=== PATIENT | male | born 1965 | race Caucasian/White ===

== ENCOUNTER → 2016-09-10 | Outpatient (CLI) | payer BC ==
--- NOTE | 2016-09-10 17:10 | XR ---
EXAMINATION TYPE: XR chest 2V DATE OF EXAM: 09/10/2016 5:01 PM COMPARISON: 10/24/2014 HISTORY: Cough for 3 months TECHNIQUE: Frontal and lateral views of the chest are obtained. FINDINGS: Heart and mediastinum are normal. Lungs are clear. Costophrenic angles are clear. There ar e no hilar masses. Bony thorax is intact. IMPRESSION: Normal chest. No change.
== END | disposition home or self-care (01) ==
LOC: RADXRMAIN 16:51
PROVIDERS: ATTEND Family Medicine
DX: R05 Cough (principal)
CPT/HCPCS: 71020

== ENCOUNTER → 2018-03-03 | Outpatient (CLI) | payer BC ==
--- NOTE | 2018-03-03 22:38 | MR ---
EXAMINATION TYPE: MR knee RT wo con DATE OF EXAM: 03/03/2018 COMPARISON: NONE HISTORY: Rt knee pain x 1 month TECHNIQUE: Multiplanar, multisequence images of the knee is performed without IV contrast. FINDINGS: MEDIAL MENISCUS: Anterior and posterior horns are intact without tear. LATERAL MENISCUS: Anterior and posterior horns are intact without tear. CRUCIATE LIGAMENTS: The anterior and posterior cruciate ligaments are intact and unremarkable. COLLATERAL LIGAMENTS: The medial collateral ligament and lateral collateral ligament complex are inta ct and unremarkable. EXTENSOR MECHANISM: Visualized quadriceps and patellar tendons are intact. EFFUSION: No significant suprapatellar joint effusion. POPLITEAL CYST: No popliteal/velez cyst. TRICOMPARTMENT SPACES: There is fairly moderate tricompartment joint space loss most prominent medial tibiofemoral compartment. Mild tibial condylar spurring is present. Mild spurring patellofemoral com partment is seen. CARTILAGE: There is thinning of articular cartilage medial tibial femoral compartment. There is confi rmation patella with near full-thickness loss central aspect medial posterior patellar pole near axia l image 17. BONE MARROW SIGNAL: Some heterogeneous signal posterior patellar pole is present sagittal image 17. S ome mild diminished T1 and increased T2 signal is seen in the medial tibiofemoral compartment for ref erence sagittal image 10. OTHER: Increased fluid signal subcutaneous deep superficial infrapatellar fat is noted. IMPRESSION: 1. No meniscal or ligamentous tear is seen. 2. Moderate to advanced osteoarthritic changes most prominent patellofemoral and medial tibiofemoral compartments as detailed above.
== END | disposition home or self-care (01) ==
LOC: RADMRIMAIN 16:27
PROVIDERS: ATTEND Orthopaedic Surgery
DX: M17.11 Unilateral primary osteoarthritis, right knee (principal)

== ENCOUNTER → 2018-08-21 | Outpatient (CLI) | payer BC ==
[2018-08-21 16:23] LABS: LDL Cholesterol,Calculated 152.6 mg/dL (0.0-131.0); VLDL Calculation 34.4 mg/dL (5.00-40.00)
== END ==
LOC: LABWHC1 10:41
PROVIDERS: ATTEND Family Medicine
DX: E78.5 Hyperlipidemia, unspecified (principal); R51 Headache; R42 Dizziness and giddiness
CPT/HCPCS: 36415; 80061; 83036; 85379

== ENCOUNTER → 2018-11-03 | Outpatient (CLI) | payer BC ==
[2018-11-03 15:07] LABS: Basophils # (A) 0.1 k/uL (0-0.2); Basophils % (A) 1 %; Eosinophils # (A) 0.3 k/uL (0-0.7); Eosinophils % (A) 3 %; HCT 49.8 % (39.0-53.0); HGB 16.2 gm/dL (13.0-17.5); Lymphocytes # (A) 3.1 k/uL (1.0-4.8); Lymphocytes % (A) 28 %; MCH 30.6 pg (25.0-35.0); MCHC 32.5 g/dL (31.0-37.0); MCV 94.2 fL (80.0-100.0); Mean Platelet Volume 8.3; Monocytes # (A) 0.5 k/uL (0-1.0); Monocytes % (A) 5 %; Neutrophils # (A) 6.8 k/uL (1.3-7.7); Neutrophils % (A) 62 %; Platelet Count 313 k/uL (150-450); RBC 5.29 m/uL (4.30-5.90); RDW 12.5 % (11.5-15.5); WBC 10.9 k/uL (3.8-10.6)
== END | disposition home or self-care (01) ==
LOC: LABWHC1 14:21
PROVIDERS: ATTEND Family Medicine
DX: L03.115 Cellulitis of right lower limb (principal)
CPT/HCPCS: 36415; 85025; 85379

== ENCOUNTER 2019-07-30 20:41 | Emergency (ER) | payer BC ==
[2019-07-30 20:54] VITALS: BP 147/88; PULSE 82; RESP 18; TEMP 98
--- NOTE | 2019-07-30 21:32 | XR ---
EXAMINATION TYPE: XR tibia fibula RT DATE OF EXAM: 07/30/2019 COMPARISON: NONE HISTORY: Leg pain TECHNIQUE: 2 views FINDINGS: Tibia and fibula appear intact. I see no fracture nor dislocation. IMPRESSION: Negative right tibia and fibula exam.
--- NOTE | 2019-07-30 21:54 | US ---
EXAMINATION TYPE: US extremity nonvasc mass RT DATE OF EXAM: 07/30/2019 COMPARISON: NONE CLINICAL HISTORY: pain. Right posterior calf pain after patient heard a popping sound. The right posterior calf, over area of pain, was scanned. There is no abnormal fluid collection or ma ss seen. IMPRESSION: No solid or cystic mass identified in the area of concern. No free fluid.
--- NOTE | 2019-07-30 22:06 | ED ---
Lower Extremity Injury HPI - General Chief Complaint: Extremity Injury, Lower Stated Complaint: Leg injury Time Seen by Provider: 07/30/19 20:59 Source: patient, RN notes reviewed, old records reviewed Mode of arrival: ambulatory Limitations: no limitations - History of Present Illness Initial Comments: Patient is a 53-year-old male presents emergency department today 2 days after he was bowling. He reports he was pulling felt a pop and a strain in his right posterior calf. Patient states that he has had some pain with range of motion and minor swelling. Patient states that he has full range of motion of his ankle. Patient denies any knee pain. Patient states that he feels he pulled some muscles well bowling. Patient states that he try to build today and was having pain and felt that he needed to be seen. - Related Data Home Medications Medication Instructions Recorded Confirmed No Known Home Medications 11/01/15 11/02/15 Allergies Allergy/AdvReac Type Severity Reaction Status Date / Time No Known Allergies Allergy Verified 07/30/19 20:54 Review of Systems ROS Statement: Those systems with pertinent positive or pertinent negative responses have been documented in the HPI. ROS Other: All systems not noted in ROS Statement are negative. Past Medical History Past Medical History: GERD/Reflux History of Any Multi-Drug Resistant Organisms: None Reported Past Surgical History: Orthopedic Surgery Additional Past Surgical History / Comment(s): VASECTOMY,RIGHT HAND Past Anesthesia/Blood Transfusion Reactions: No Reported Reaction Past Psychological History: No Psychological Hx Reported Smoking Status: Never smoker Past Alcohol Use History: Occasional Past Drug Use History: None Reported - Past Family History Mother Family Medical History: No Reported History General Exam - General Exam Comments Initial Comments: Pleasant 53-year-old male. No distress. Limitations: no limitations General appearance: alert, in no apparent distress Head exam: Present: atraumatic, normocephalic, normal inspection Eye exam: Present: normal appearance, PERRL, EOMI. Absent: scleral icterus, conjunctival injection, periorbital swelling ENT exam: Present: normal exam, mucous membranes moist Neck exam: Present: normal inspection. Absent: tenderness, meningismus, lymphadenopathy Respiratory exam: Present: normal lung sounds bilaterally. Absent: respiratory distress, wheezes, rales, rhonchi, stridor Cardiovascular Exam: Present: regular rate, normal rhythm, normal heart sounds. Absent: systolic murmur, diastolic murmur, rubs, gallop, clicks GI/Abdominal exam: Present: soft Extremities exam: Present: normal inspection, full ROM, normal capillary refill. Absent: tenderness, pedal edema, joint swelling, calf tenderness Right Upper Leg exam: Present: normal inspection, full ROM Knee exam: Present: normal inspection, full ROM Lower Leg exam: Present: normal inspection, full ROM, tenderness (over posterior calf, no erythema. ) Ankle exam: Present: normal inspection, full ROM Foot/Toe exam: Present: normal inspection, full ROM Back exam: Present: normal inspection Course Vital Signs 07/30/19 20:50 Temperature 98.0 F Pulse Rate 82 Respiratory 18 Rate Blood Pressure 147/88 O2 Sat by Pulse 94 L Oximetry Medical Decision Making - Medical Decision Making Patient is a 53-year-old male presents today for right posterior leg pain after a popping sensation while bowling yesterday. He has no significant swelling or erythema. Discussed likely muscle strain. Patient has normal pulses. He has normal range of motion of his ankle. No Achilles tendon injury. Discussed likely a H Jey gastrocnemius or soleus muscle. Ultrasound soft tissue stranding completed with no sign of posterior hematomas. Patient typically x- ray was unremarkable. Discussed the Patient likely has a muscle strain and can follow-up with primary care doctor or orthopedic if not Naseem wrap. - Radiology Data Radiology results: report reviewed Tib-fib x-rays negative for for any fracture. Ultrasound of the right lower Boucher knee shows no signs of cystic or free fluid. Disposition Clinical Impression: Strain of calf muscle Disposition: HOME SELF-CARE Condition: Good Instructions (If sedation given, give patient instructions): Muscle Strain (DC) Additional Instructions: Patient advised to follow-up with your primary care doctor. Patient can ice and take Motrin or Tylenol for pain. Patient can wear an Naseem wrap as well as a help with swelling or pain. Follow-up with primary care doctor. Is patient prescribed a controlled substance at d/c from ED?: No Referrals: Jefferson Lopez DO [Primary Care Provider] - 1-2 days Time of Disposition: 22:02
== END 2019-07-30 22:19 | disposition home or self-care (01) ==
LOC: EC 20:41
DX: S86.911A Strain of unspecified muscle(s) and tendon(s) at lower leg level, right leg, initial encounter (principal); X50.9XXA Other and unspecified overexertion or strenuous movements or postures, initial encounter; Y93.54 Activity, bowling
CPT/HCPCS: 99284

== ENCOUNTER → 2019-08-23 | Outpatient (CLI) | payer BC ==
[2019-08-23 12:30] LABS: Basophils # (A) 0.1 k/uL (0-0.2); Basophils % (A) 2 %; Eosinophils # (A) 0.2 k/uL (0-0.7); Eosinophils % (A) 3 %; HCT 46.2 % (39.0-53.0); HGB 15.9 gm/dL (13.0-17.5); Lymphocytes # (A) 2.3 k/uL (1.0-4.8); Lymphocytes % (A) 31 %; MCH 32.5 pg (25.0-35.0); MCHC 34.4 g/dL (31.0-37.0); MCV 94.5 fL (80.0-100.0); Mean Platelet Volume 9.5; Monocytes # (A) 0.5 k/uL (0-1.0); Monocytes % (A) 7 %; Neutrophils # (A) 4.1 k/uL (1.3-7.7); Neutrophils % (A) 55 %; Platelet Count 307 k/uL (150-450); RBC 4.89 m/uL (4.30-5.90); RDW 12.4 % (11.5-15.5); WBC 7.4 k/uL (3.8-10.6)
[2019-08-23 14:34] LABS: Potassium 4.3 mmol/L (3.5-5.1)
== END | disposition home or self-care (01) ==
LOC: LABPAT 11:26
PROVIDERS: ATTEND Orthopaedic Surgery
DX: Z01.818 Encounter for other preprocedural examination (principal); Z01.812 Encounter for preprocedural laboratory examination; M23.91 Unspecified internal derangement of right knee
CPT/HCPCS: 80051; 85025; 93005

== ENCOUNTER 2019-09-09 11:47 | Day surgery (SDC) | payer BC ==
[2019-09-07 17:01] VITALS: BMI 39.7
--- NOTE | 2019-09-08 17:05 | HP ---
HISTORY AND PHYSICAL DATE OF SURGERY: 09/09/2019 Fabricio Soto is a 54-year-old patient seen with progressive right knee pain. We discussed options for treatment. He elected to proceed with arthroscopy. Consent was obtained. PAST MEDICAL HISTORY: Hypertension. PAST SURGICAL HISTORY: Noncontributory. DAILY MEDICATIONS: Motrin. ALLERGIES: NONE. SOCIAL HISTORY: Denies current tobacco use. PHYSICAL EVALUATION OF THE RIGHT KNEE: Range of motion is zero to 130 degrees, moderate effusion. Tenderness along the medial joint line. Positive medial Donis's. Ligaments are stable. Hip rotation without pain. Distal neurovascular exam is intact. RADIOGRAPHS: Radiographs of the right knee revealed osteoarthritic changes. MRI of the right knee revealed osteoarthritic changes. IMPRESSION: 1. Internal derangement of right knee with medial meniscal tear. 2. Right knee osteoarthritis. 3. Hypertension. PLAN: Right knee arthroscopy with partial meniscectomy, partial synovectomy and debridement. MMODL / IJN: [id number] /
[~2019-09-09 11:47] MED LIST: DEXAMETHASONE SOD PHOSPHATE 10 MG/ML 1 ML VIAL IV ONE; LACTATED RINGERS 1,000 ML IV SCH; LIDOCAINE 1% 20 ML VIAL (10MG/ML) FOR IV START INTRADERMA PRN; ONDANSETRON 4 MG/2 ML VIAL IVP ONE; SCOPOLAMINE 1.5MG/72HR PATCH TRANSDERM ONE; ceFAZolin 3 GM in SODIUM CHLORIDE 0.9% 100 ML IVPB ONE
[2019-09-09] MEDS ORDERED: fentaNYL (PF) 50 MCG/ML 2 ML AMP ONE (14:03)
[2019-09-09] MEDS ORDERED: LIDOCAINE 1% INJ 10MG/ML (20 ML MDV) ONE (14:03)
[2019-09-09] MEDS ORDERED: SUCCINYLCHOLINE CHLORIDE 100 MG/5 ML SYR IV ONE (14:03)
[2019-09-09] MEDS ORDERED: MIDAZOLAM 2 MG/2 ML VIAL ONE (14:03)
[2019-09-09] MEDS ORDERED: PROPOFOL 10 MG/ML 20 ML VIAL IV ONE (14:03)
[2019-09-09] MEDS ORDERED: BUPIVACAINE (PF) 0.25% 30 ML VIAL SQ ONE (14:09)
--- NOTE | 2019-09-09 15:02 | P.OP ---
Date of Procedure: 09/09/19 Preoperative Diagnosis: Internal derangement right knee Postoperative Diagnosis: 1. Tear medial meniscus right knee 2. Grade 4 chondromalacia medial femoral condyle right knee 3. Reactive synovitis medial, lateral and suprapatellar compartments right knee Procedure(s) Performed: 1. Arthroscopic partial medial meniscectomy right knee 2. Arthroscopic chondroplasty medial femoral condyle right knee 3. Arthroscopic microfracture medial femoral condyle right knee 4. Arthroscopic partial synovectomy medial, lateral and suprapatellar compartments right knee Anesthesia: BRANDYA, local Surgeon: Bernabe Maier Estimated Blood Loss (ml): 8 Pathology: none sent Condition: stable Disposition: PACU Indications for Procedure: 54-year-old patient seen with progressive right knee pain. After treatment options were discussed, he elected to proceed with arthroscopy. Operative Findings: See description of procedure Description of Procedure: Patient was taken to the operative suite. Patient underwent a general anesthetic by the department of anesthesia. Patient was given preoperative antibiotics. The right lower extremity was placed in a well-padded arthroscopic leg stevens. The right leg was prepped and draped in the normal sterile orthopedic fashion. A lateral parapatellar and suprapatellar incision was made. Trochars were inserted. Arthroscopy was initiated. Suprapatellar pouch revealed diffuse thick reactive synovitis. The patellofemoral joint appeared to articulate congruently. There was grade 1 chondromalacia with no osteochondral tears present. The scope was guided into the medial gutter. No loose bodies or plica were identified. The scope was then guided into the medial compartment. A medial parapatellar incision was made. Trocar inserted followed by probe. There was a complex tear involving the posterior horn and midbody of the medial meniscus. There were grade 3/4 chondromalacia changes of the medial femoral condyle with some osteochondral flap tears present. There was thick reactive synovitis anteriorly. I performed a partial medial meniscectomy. I performed a chondroplasty of the medial femoral condyle. I performed a partial synovectomy decompressing reactive synovitis. There was one area of exposed bone along the medial border medial femoral condyle weightbearing surface measuring approximately 0.75 cm in diameter. I performed a microfracture to that area penetrating the bone with a microfracture awl with resultant bleeding at the microfracture site. The residual meniscus was found to be stable. The residual osteochondral surface was stable. There was good decompression of synovitis. Scope and probe were then guided into the intercondylar notch. Cruciates were identified, probed and found to be stable. The scope and probe were then guided into lateral compartment. The lateral meniscus reveals some mild fraying along the midbody area. There were grade 1 chondromalacia changes of the lateral tibial plateau with no osteochondral tears present. There was reactive synovitis anteriorly. A motorize shaver was introduced I debrided that mild fraying of the midbody lateral meniscus. I now performed a partial synovectomy decompressing reactive synovitis. There was good decompression of the synovitis. The scope was in guided back into the suprapatellar compartment. I introduced a motorized shaver into the suprapatellar compartment. I debrided some piecemeal fragments of meniscus I encountered. I performed a partial synovectomy decompressing reactive synovitis. Instruments were now removed from the joint. The joint was infiltrated with .25% Marcaine. Steri-Strips were applied to the portal sites. Sterile dressings were applied. The patient was placed into a BLANCA hose. No tourniquet was utilized. The patient was awakened, transferred to a bed and taken to recovery stable satisfactory condition.
[2019-09-09 15:04] VITALS: TEMP 97
[2019-09-09] MEDS: HYDROmorphone 0.5 MG/0.5 ML SYRINGE IVP PRN ×2 (15:19→15:26)
[2019-09-09 15:34] VITALS: RESP 16
[2019-09-09] MEDS ORDERED: HYDROcodone/APAP 7.5-325MG 1 EACH TAB PO ONE (15:55)
[2019-09-09 16:18] VITALS: BP 156/88; PULSE 77
== END 2019-09-09 16:28 | disposition home or self-care (01) ==
LOC: OR 11:47
PROVIDERS: ATTEND Orthopaedic Surgery
DX: M23.321 Other meniscus derangements, posterior horn of medial meniscus, right knee (principal); M94.261 Chondromalacia, right knee; M65.861 Other synovitis and tenosynovitis, right lower leg; M17.11 Unilateral primary osteoarthritis, right knee; I10 Essential (primary) hypertension; E78.5 Hyperlipidemia, unspecified; G47.33 Obstructive sleep apnea (adult) (pediatric); K21.9 Gastro-esophageal reflux disease without esophagitis; Z79.1 Long term (current) use of non-steroidal anti-inflammatories (NSAID)
CPT/HCPCS: 29881; 29879; J2250; J1100; J0690; J2405; J2001; J3010; J0330; J2704; J1170

== ENCOUNTER → 2020-02-02 | Outpatient (CLI) | payer BC ==
--- NOTE | 2020-02-03 02:44 | MR ---
EXAMINATION TYPE: MR knee LT wo con DATE OF EXAM: 02/02/2020 COMPARISON: 05/13/2012 HISTORY: Knee pain and Swelling x 2months Multiplanar multiecho imaging of the left knee was performed without contrast. FINDINGS: The anterior and posterior cruciate ligaments are intact. There is small horizontal tear anterior hor n of the medial meniscus. The lateral meniscus is intact. There is small amount of fluid around the h ead of the fibula. There is subcutaneous edema anterior to the patella and tibial tubercle. There are small subchondral cystic changes in the medial femoral condyle consistent with degenerative cyst for mation. There is similar change at the lateral tibial condyle with articulation of the fibula. There is some thickening and increased signal in the medial collateral ligament. IMPRESSION: There is tear of the medial collateral ligament with edema which is a change compared to old exam. Th ere are small tear anterior horn of the medial meniscus that is a change compared to old exam. There is fluid around the tibia fibula joint consistent with synovitis. Small degenerative cysts in t he medial femoral condyle. Subcutaneous edema around the knee anteriorly increased compared to old ex am. Knee joint effusion improved compared to old exam.
== END | disposition home or self-care (01) ==
LOC: RADMRIMAIN 17:01
PROVIDERS: ATTEND Orthopaedic Surgery
DX: S83.412A Sprain of medial collateral ligament of left knee, initial encounter (principal); S83.242A Other tear of medial meniscus, current injury, left knee, initial encounter; M25.862 Other specified joint disorders, left knee

== ENCOUNTER → 2020-04-12 | Outpatient (CLI) | payer BC ==
[2020-04-12 15:47] LABS: Basophils # (A) 0.1 k/uL (0-0.2); Basophils % (A) 1 %; Eosinophils # (A) 0.2 k/uL (0-0.7); Eosinophils % (A) 3 %; HCT 44.3 % (39.0-53.0); HGB 14.4 gm/dL (13.0-17.5); Lymphocytes # (A) 2.2 k/uL (1.0-4.8); Lymphocytes % (A) 30 %; MCH 30.7 pg (25.0-35.0); MCHC 32.5 g/dL (31.0-37.0); MCV 94.6 fL (80.0-100.0); Mean Platelet Volume 8.9; Monocytes # (A) 0.4 k/uL (0-1.0); Monocytes % (A) 6 %; Neutrophils # (A) 4.3 k/uL (1.3-7.7); Neutrophils % (A) 59 %; Platelet Count 240 k/uL (150-450); RBC 4.68 m/uL (4.30-5.90); RDW 12.4 % (11.5-15.5); WBC 7.3 k/uL (3.8-10.6)
[2020-04-12 15:54] LABS: Potassium 4.4 mmol/L (3.5-5.1)
== END | disposition home or self-care (01) ==
LOC: LABPAT 15:19
PROVIDERS: ATTEND Orthopaedic Surgery
DX: Z01.818 Encounter for other preprocedural examination (principal); M23.92 Unspecified internal derangement of left knee
CPT/HCPCS: 80051; 85025

== ENCOUNTER 2020-04-20 10:32 | Day surgery (SDC) | payer BC ==
[2020-04-17 13:46] VITALS: BMI 37.3
--- NOTE | 2020-04-19 20:56 | HP ---
HISTORY AND PHYSICAL DATE OF SURGERY: 04/20/2020 Fabricio Soto is a 54-year-old patient seen with progressive left knee pain. After treatment options were discussed with him, he elected to proceed with arthroscopy. Consent regarding the procedure was obtained. PAST MEDICAL HISTORY: Hypertension. PAST SURGICAL HISTORY: Right knee arthroscopy, left knee arthroscopy. DAILY MEDICATIONS: Motrin. ALLERGIES: NONE. SOCIAL HISTORY: He denies current tobacco use. PHYSICAL EVALUATION OF THE LEFT KNEE: Range of motion 0 to 130. Mild effusion. Tenderness medial joint line. Positive medial Donis's. Ligaments stable. Hip rotation without pain. Distal neurovascular exam intact. RADIOGRAPHS: Left knee radiographs revealed moderate medial and moderate patellofemoral compartment osteoarthritis. Left knee MRI revealed medial meniscal tear, osteoarthritic changes. IMPRESSION: 1. Internal derangement of the left knee with medial meniscal tear. 2. Left knee osteoarthritis. 3. History of right knee osteoarthritis. 4. Hypertension. PLAN: Left knee arthroscopy with partial meniscectomy with partial synovectomy and debridement. MMODL / IJN: [id number] /
[~2020-04-20 10:32] MED LIST changes: -LIDOCAINE 1% 20 ML VIAL (10MG/ML) FOR IV START INTRADERMA PRN; -SCOPOLAMINE 1.5MG/72HR PATCH TRANSDERM ONE
[2020-04-20] MEDS ORDERED: LIDOCAINE 1% (10MG/ML) FOR IV START INTRADERMA ONE (11:10)
[2020-04-20 11:15] LABS: Glucose,Whole Blood 109 mg/dL (75-99)
[2020-04-20] MEDS ORDERED: BUPIVACAINE (PF) 0.25% 30 ML VIAL INTRAARTIC ONE (11:15)
[2020-04-20] MEDS ORDERED: fentaNYL (PF) 50 MCG/ML 2 ML AMP ONE (11:16)
[2020-04-20] MEDS ORDERED: SUCCINYLCHOLINE CHLORIDE 100 MG/5 ML SYR IV ONE (11:16)
[2020-04-20] MEDS ORDERED: PROPOFOL 10 MG/ML 20 ML VIAL IV ONE (11:16)
[2020-04-20] MEDS ORDERED: LIDOCAINE 1% INJ 10MG/ML (20 ML MDV) ONE (11:16)
[2020-04-20] MEDS ORDERED: MIDAZOLAM 2 MG/2 ML VIAL ONE (11:16)
[2020-04-20] MEDS: HYDROmorphone 0.5 MG/0.5 ML SYRINGE IVP PRN ×2 (12:05→12:10)
--- NOTE | 2020-04-20 12:09 | P.OP ---
Date of Procedure: 04/20/20 Preoperative Diagnosis: Internal derangement left knee Postoperative Diagnosis: 1. Tear medial meniscus left knee 2. Grade 2/3 chondromalacia medial femoral condyle left knee 3. Reactive synovitis medial, lateral and suprapatellar compartments left knee Procedure(s) Performed: 1. Arthroscopic partial medial meniscectomy left knee 2. Arthroscopic chondroplasty medial femoral condyle left knee 3. Arthroscopic partial synovectomy medial, lateral and suprapatellar compartments left knee Anesthesia: GETA, local Surgeon: Bernabe Maier Estimated Blood Loss (ml): 8 Pathology: none sent Condition: stable Disposition: PACU Indications for Procedure: 54-year-old patient seen with progressive left knee pain. After treatment options were discussed, he elected to proceed with arthroscopy. Operative Findings: See description of procedure Description of Procedure: Patient was taken to the operative suite. Patient underwent a general anesthetic by the department of anesthesia. Patient was given preoperative antibiotics. The left lower extremity was placed in a well-padded arthroscopic leg stevens. The left leg was prepped and draped in the normal sterile orthopedic fashion. A lateral parapatellar and suprapatellar incision was made. Trochars were inserted. Arthroscopy was initiated. Suprapatellar pouch revealed diffuse thick reactive synovitis. The patellofemoral joint appeared to articulate congruently. There was grade 1 chondromalacia of the patella. The scope was guided into the medial gutter. No loose bodies or plica were identified. The scope was then guided into the medial compartment. A medial parapatellar incision was made. Trocar inserted followed by probe. Was a complex tear involving the mid body of the medial meniscus. It did slightly extended into the posterior horn. There were grade 2/3 chondromalacia changes of the medial femoral condyle with some osteochondral tears present. There was thick reactive synovitis anteriorly. I performed a partial medial meniscectomy. I performed a chondroplasty of the medial femoral condyle. I performed a partial synovectomy decompressing the reactive synovitis. The residual meniscus was stable. There was good decompression of synovitis. The residual osteochondral surface of the heel femoral condyle was stable. Scope and probe were then guided into the intercondylar notch. Cruciates were identified, probed and found to be stable. The scope and probe were then guided into lateral compartment. The lateral meniscus was found to be stable. There was no significant chondromalacia. There was thick reactive synovitis anteriorly. I introduced a motorized shaver and performed a partial synovectomy. The shaver was removed. There was good decompression of the synovitis. The scope was in guided back into the suprapatellar compartment. I introduced a motorized shaver into the suprapatellar compartment. I debrided some piecemeal fragments of meniscus I encountered. I performed a partial synovectomy. The shaver was removed. I took one more look around the entire knee, no residual debris. Instruments were now removed from the joint. The joint was infiltrated with .25% Marcaine. Steri-Strips were applied to the portal sites. Sterile dressings were applied. The patient was placed into a BLANCA hose. No tourniquet was utilized. The patient was awakened, transferred to a bed and taken to recovery stable satisfactory condition.
[2020-04-20 12:11] VITALS: TEMP 97
[2020-04-20] MEDS ORDERED: KETOROLAC 15 MG/ML 1 ML VIAL IVP ONE (12:13)
[2020-04-20 12:46] LABS: Glucose,Whole Blood 114 mg/dL (75-99)
[2020-04-20] MEDS ORDERED: HYDROcodone/APAP 7.5-325MG 1 EACH TAB ONE (13:04)
[2020-04-20] MEDS ORDERED: HYDROcodone/APAP 7.5-325MG 1 EACH TAB PO ONE (13:08)
[2020-04-20 13:11] VITALS: BP 126/75; PULSE 71; RESP 16
== END 2020-04-20 14:06 | disposition home or self-care (01) ==
LOC: OR 10:32
PROVIDERS: ATTEND Orthopaedic Surgery
DX: S83.232A Complex tear of medial meniscus, current injury, left knee, initial encounter (principal); X58.XXXA Exposure to other specified factors, initial encounter; M22.42 Chondromalacia patellae, left knee; M65.862 Other synovitis and tenosynovitis, left lower leg; M17.12 Unilateral primary osteoarthritis, left knee; E11.9 Type 2 diabetes mellitus without complications; G47.33 Obstructive sleep apnea (adult) (pediatric); I10 Essential (primary) hypertension; Z79.84 Long term (current) use of oral hypoglycemic drugs; Z79.1 Long term (current) use of non-steroidal anti-inflammatories (NSAID); Z98.890 Other specified postprocedural states
CPT/HCPCS: 29881; 29876; J2250; J1100; J2405; J2001; J3010; J1885; J0330; J2704; J1170

== ENCOUNTER → 2020-11-09 | Outpatient (CLI) | payer BC ==
--- NOTE | 2020-11-09 15:47 | XR ---
EXAMINATION TYPE: XR chest 2V DATE OF EXAM: 11/09/2020 COMPARISON: NONE HISTORY: Shortness of breath TECHNIQUE: Frontal and lateral views of the chest are obtained. FINDINGS: Scattered senescent parenchymal changes noted. Hyperinflation compatible with COPD. No evidence for infiltrate. No evidence for atelectasis. Heart size is stable. Mediastinal structures are stable and grossly unremarkable. No evidence for hilar prominence. Degenerative changes dorsal spine. IMPRESSION: 1. No evidence for acute pulmonary disease.
== END | disposition home or self-care (01) ==
LOC: RADXRMAIN 15:22
PROVIDERS: ATTEND Family Medicine
DX: J40 Bronchitis, not specified as acute or chronic (principal); U07.1 COVID-19
CPT/HCPCS: 71046

== ENCOUNTER → 2022-01-29 | Outpatient (CLI) | payer BC ==
[2022-01-29 18:03] LABS: Basophils # (A) 0.05 X 10*3/uL (0.00-0.10); Basophils % (A) 0.8 %; Eosinophils # (A) 0.08 X 10*3/uL (0.04-0.35); Eosinophils % (A) 1.2 %; HGB 15.3 g/dL (13.0-17.0); Immature Grans, Automated 0.3 %; Lymphocytes % (A) 29.3 %; MCH 30.8 pg (27.0-32.0); MCHC 32.6 g/dL (32.0-37.0); MCV 94.8 fL (80.0-97.0); Monocytes # (A) 0.55 X 10*3/uL (0.20-1.00); Monocytes % (A) 8.5 %; NRBC Per 100 WBC 0 /100 WBCS (0.0-0.0); Neutrophils # (A) 3.89 X 10*3/uL (1.80-7.70); Neutrophils % (A) 59.9 %; Platelet Count 281 X 10*3/uL (140-440); RBC 4.96 X 10*6/uL (4.40-5.60); RDW 12.8 % (11.5-14.5); WBC 6.49 X 10*3/uL (4.50-10.00)
[2022-01-29 18:11] LABS: African American GFR (CKD) 111.8 (60.0-200.0); Anion Gap 12.1 mmol/L (10.00-18.00); Blood Urea Nitrogen 13.5 mg/dL (9.0-27.0); Calcium 9.4 mg/dL (8.7-10.3); Carbon Dioxide 22.9 mmol/L (20.0-27.5); Non-African American GFR(CKD) 96.5 (60.0-200.0); Potassium 4.2 mmol/L (3.5-5.5)
[2022-01-29 18:30] LABS: INR 0.91 (0.90-1.11); Prothrombin Time 10.3 sec (9.9-11.9)
== END | disposition home or self-care (01) ==
LOC: LABPAT 11:39
PROVIDERS: ATTEND Orthopaedic Surgery
DX: Z01.812 Encounter for preprocedural laboratory examination (principal); M17.12 Unilateral primary osteoarthritis, left knee
CPT/HCPCS: 80048; 85025; 85610; 93005

== ENCOUNTER → 2022-02-13 | Outpatient (CLI) | payer BC | END | disposition home or self-care (01) | LOC: LABWHC1 15:45 | PROVIDERS: ATTEND Orthopaedic Surgery | DX: Z01.812 Encounter for preprocedural laboratory examination (principal); Z22.322 Carrier or suspected carrier of Methicillin resistant Staphylococcus aureus; M17.12 Unilateral primary osteoarthritis, left knee | CPT/HCPCS: 87070 ==

== ENCOUNTER 2022-02-18 08:05 | Day surgery (SDC) | payer BC ==
--- NOTE | 2022-02-17 12:25 | HP ---
HISTORY AND PHYSICAL DATE OF SURGERY: 02/18/2022 Fabricio Soto is a 56-year-old gentleman seen with symptomatic left knee osteoarthritis. We discussed options for treatment. He elected to proceed with left total knee arthroplasty. Consent was obtained. PAST MEDICAL HISTORY: Hypertension. PAST SURGICAL HISTORY: Noncontributory. DAILY MEDICATIONS: Motrin. ALLERGIES: NONE. SOCIAL HISTORY: He denies tobacco use. PHYSICAL EVALUATION OF THE LEFT KNEE: His range of motion is zero to 130. Mild effusion. Tenderness, medial joint line. Positive medial Donis's. Crepitus, medial and patellofemoral compartments with range of motion. Pain with patellofemoral compression. Ligaments stable. Hip rotation without pain. Distal neurovascular exam intact. Radiographs of the left knee reveal severe osteoarthritic changes. IMPRESSION: Left knee osteoarthritis. PLAN: Left total knee arthroplasty. MMODL / IJN: [id number] /
[~2022-02-18 08:05] MED LIST changes: +ACETAMINOPHEN TAB 500 MG TAB PO PRN; -DEXAMETHASONE SOD PHOSPHATE 10 MG/ML 1 ML VIAL IV ONE; -LACTATED RINGERS 1,000 ML IV SCH; +MELOXICAM 7.5 MG TAB PO PRN; -ONDANSETRON 4 MG/2 ML VIAL IVP ONE; +TRANEXAMIC ACID IN NACL,ISO-OS 1,000 MG in SALINE 1 100ML.BAG IVPB PRN; -ceFAZolin 3 GM in SODIUM CHLORIDE 0.9% 100 ML IVPB ONE; +ceFAZolin 3 GM in SODIUM CHLORIDE 0.9% 100 ML IVPB PRN
[2022-02-18] MEDS ORDERED: HYDROmorphone 0.5 MG/0.5 ML SYRINGE IVP PRN ×3 (08:25→11:51)
[2022-02-18] MEDS ORDERED: LACTATED RINGERS 1,000 ML IV SCH (08:25)
[2022-02-18] MEDS ORDERED: LIDOCAINE 1% (10MG/ML) FOR IV START INTRADERMA PRN (08:25)
[2022-02-18] MEDS ORDERED: ONDANSETRON 4 MG/2 ML VIAL IVP ONE (08:25)
[2022-02-18] MEDS ORDERED: METOCLOPRAMIDE 5 MG/ML 2 ML VIAL IVP PRN (08:25)
[2022-02-18] MEDS ORDERED: DEXAMETHASONE SOD PHOSPHATE 4 MG/ML 1 ML VIAL IV ONE (08:25)
[2022-02-18 09:03] LABS: Glucose,Whole Blood 108 mg/dL (70-110)
[2022-02-18] MEDS ORDERED: MIDAZOLAM 2 MG/2 ML VIAL IVP ONE (09:24)
--- NOTE | 2022-02-18 09:57 | P.ANPRN ---
Procedure Note - Anesthesia - Nerve Block Performed Left Adductor Canal Infusion Date of Procedure: 02/18/22 Procedure Start Time: : Procedure Stop Time: 09:36 Location of Patient: PreOp Indication: Acute Post-Operative Pain, Requested by Surgeon Specifically requested for management of pain by DrMeri: Bernabe Maier Sedation Type: Sedate with meaningful contact maintained Preparation: Sterile Prep, Sterile Dressing Position: Supine Catheter: Indwelling Needle Types: Pajunk Needle Gauge: 20 Ultrasound used to visualize needle placement: Yes Ultrasound used to observe medication spread: Yes Injectate: 0.5% Ropivacaine (see comment for volume) Blood Aspirated: No Pain Paresthesia on Injection Noted: No Resistance on Injection: Normal Image Stored and Saved: Yes Events: Uneventful and Well Tolerated (20 mls of ropivacaine 0.5% with 5 mgs of Decadron)
[2022-02-18] MEDS ORDERED: ROPIVACAINE 0.2%-NS ON-Q PUMP 1,090 MG, EMPTY PAIN BALL 1 EACH MISCELLANE PRN (09:58)
--- NOTE | 2022-02-18 09:58 | P.ANPRN ---
Procedure Note - Anesthesia - Nerve Block Performed Left Wilberto Single Date of Procedure: 02/18/22 Procedure Start Time: 09:40 Procedure Stop Time: :44 Location of Patient: PreOp Indication: Acute Post-Operative Pain, Requested by Surgeon Specifically requested for management of pain by DrMeri: Bernabe Maier Sedation Type: Sedate with meaningful contact maintained Preparation: Sterile Prep Position: Supine Catheter: None Needle Types: Touhy Needle Gauge: 20 Ultrasound used to visualize needle placement: Yes Ultrasound used to observe medication spread: Yes Injectate: 0.5% Ropivacaine (see comment for volume) Blood Aspirated: No Pain Paresthesia on Injection Noted: No Resistance on Injection: Normal Image Stored and Saved: Yes Events: Uneventful and Well Tolerated (20 mls of Ropivacaine 0.5% with 5 mg of Decadron)
[2022-02-18] MEDS ORDERED: TRANEXAMIC ACID IN NACL,ISO-OS 1,000 MG/100 ML BAG ONE (10:08)
[2022-02-18] MEDS ORDERED: DEXAMETHASONE SOD PHOSPHATE 10 MG/ML 1 ML VIAL ONE (10:08)
[2022-02-18] MEDS ORDERED: ROCURONIUM 10 MG/ML (5 ML VIAL) IV ONE (10:08)
[2022-02-18] MEDS ORDERED: NEOSTIGMINE 1 MG/ML 10 ML VIAL ONE (10:08)
[2022-02-18] MEDS ORDERED: fentaNYL (PF) 50 MCG/ML 2 ML AMP ONE (10:08)
[2022-02-18] MEDS ORDERED: GLYCOPYRROLATE 0.2 MG/ML 2 ML VIAL ONE (10:08)
[2022-02-18] MEDS ORDERED: LIDOCAINE 2% INJ 20 MG/ML (2 ML VIAL) ONE (10:08)
[2022-02-18] MEDS ORDERED: SUCCINYLCHOLINE CHLORIDE 100 MG/5 ML SYR IV ONE (10:08)
[2022-02-18] MEDS ORDERED: ROPIVACAINE 5 MG/ML 30 ML VIAL ONE (10:08)
[2022-02-18] MEDS ORDERED: PROPOFOL 10 MG/ML 20 ML VIAL IV ONE (10:08)
[2022-02-18] MEDS ORDERED: MIDAZOLAM 2 MG/2 ML VIAL ONE (10:08)
[2022-02-18] MEDS ORDERED: ceFAZolin 1,000 MG in SODIUM CHLORIDE 0.9% 1,000 ML IRRIGATION ONE (10:45)
[2022-02-18] MEDS ORDERED: HYDROcodone/APAP 5-325MG 1 EACH TAB PO PRN ×2 (11:51→14:22)
[2022-02-18] MEDS ORDERED: HYDROmorphone 1 MG/ML 1 ML SYRINGE IVP PRN (11:51)
[2022-02-18] MEDS ORDERED: ONDANSETRON 4 MG/2 ML VIAL IVP PRN (11:51)
[2022-02-18] MEDS ORDERED: LACTATED RINGERS 1,000 ML IV ONE ×2 (11:51→11:55)
[2022-02-18] MEDS ORDERED: HYDROcodone/APAP 7.5-325MG 1 EACH TAB PO PRN (11:51)
[2022-02-18] MEDS ORDERED: NALOXONE 0.4 MG/ML 1 ML VIAL IV PRN (11:51)
--- NOTE | 2022-02-18 11:51 | P.OP ---
Date of Procedure: 02/18/22 Preoperative Diagnosis: Left knee osteoarthritis Postoperative Diagnosis: Left knee osteoarthritis Procedure(s) Performed: Left total knee arthroplasty Implants: 1. Depuy attune size 7 left cruciate retaining cemented femur 2. Depuy attune size 7 fixed bearing cemented tibial baseplate 3. Depuy attune size 7 fixed bearing cruciate retaining 12 mm polyethylene tibial insert 4. Depuy attune 38 mm all polyethylene cemented patella Anesthesia: GETA, regional (Adductor canal catheter, Ipack block) Surgeon: [facility] Director #1: Carson Alfonso Estimated Blood Loss (ml): 45 Pathology: other (Bone) Condition: stable Disposition: PACU Indications for Procedure: 56-year-old patient seen with symptomatic left knee osteoarthritis. After treatment options were discussed, he elected to proceed with total knee art hroplasty. Operative Findings: See description of procedure Description of Procedure: Patient was taken to the operative suite after having an adductor canal catheter placed by the department of anesthesia as well as and Ipack block for postoperative pain management. Patient underwent a general anesthetic by the department of anesthesia. Patient was given preoperative IV intake antibiotics and TXA. A well-padded tourniquet was placed about the left lower extremity. The lower extremity was then prepped and draped in the normal sterile orthopedic fashion. The extremity was elevated, a tourniquet was insufflated to 300. A standard anterior incision was made sharply through skin. Dissection was taken down through the subcutaneous soft tissues down to the extensor mechanism. A medial arthrotomy was performed, patella was everted and knee was flexed. There was advanced osteoarthritis noted. I introduced my distal intramedullary fe moral drill. I then introduced the distal femoral cutting jig. Trent MARQUES secured the cutting jig with 2 pins. I held retractors in position while Trent MARQUES performed the distal femoral resection through the guide area we now removed her distal femoral cutting guide. We now placed our 4-in-1 femoral cutting block and positioned and it was secured with 2 pins by Tretn MARQUES while I held the block in position. The distal femoral finishing was now completed. A proximal tibial cutting guide was positioned. I held the guide in the appropriate position with both hands well Trent MARQUES inserted stabilizing pins into the guide. Proximal tibial cut was made. We now placed a trial femoral component into position, along with an appropriate size tibial tray and insert. We now took the knee through range of motion and had full extension good flexion and good overall soft tissue balance noted. The patella was everted and stabilized with 2 towel clips held by Trent MARQUES while I performed a flush with patellar quad tendon utilizing a fresh sawblade. We templated the patella, appropriate drill holes were made. An appropriate trial patella was positioned, knee was taken through full range of motion with the patella tracking very nicely. The trial patella was removed. Drill holes were made through the femoral component. All trial components were removed after mar liane off the appropriate rotation of the tibia. Retractors were now positioned along the proximal tibia. An appropriate keel punch was made with the appropriate size tibial guide by myself on Trent MARQUES assisted by holding retractors. At this point appropriate size implants were chosen and opened. The joint was irrigated copiously with pulse lavage mechanical irrigation. The posterior capsule was infiltrated with local analgesic. The wound was irrigated with pulse lavage mechanical irrigation. We mixed antibiotic methylmethacrylate. We placed the knee into flexion. We placed multiple retractors assisted by Trent MARQUES to expose the proximal tibia. Once the methyl methacrylate was ready, the tibial component was cemented into place removing any excess methylmethacrylate form by both myself and Trent MARQUES. The femoral component was cemented into place removing the removing any excess methylmethacrylate performed by both myself and Trent MARQUES. We then inserted the appropriate size polyethylene tibial insert. We made sure that it was locked into position. We took the knee into full extension, and then back in a flexion making sure we had removed any excess methylmethacrylate. The patellar component was then cemented down and secured with clamp. Excess methylmethacrylate removed. We kept the knee in full extension, patellar clamp in position until methylmethacrylate had hardened. Once it had hardened the patellar clamp was removed. The knee was taken through full range of motion. The patella tracked nicely. There was good soft tissue balancing. The tourniquet was now released. Additional hemostasis was achieved via electrocautery. A second gram of TXA was given. The wound again was irrigated with pulse lavage mechanical irrigation. The superficial soft tissues were infiltrated local analgesic. The extensor mechanism was repaired with Ethibond suture. We checked the repair with range of motion and it was stable. The subcutaneous soft tissues were repaired with Vicryl in layers. The skin was approximated with pernio/Dermabond. Sterile dressings were applied followed by loose web roll and Naseem bandage. The patient was transferred to a bed, and taken to recovery in stable and satisfactory condition. Trent MARQUES assisted with this complex procedure.
[2022-02-18 12:19] VITALS: TEMP 97.5
[2022-02-18] MEDS ORDERED: HYDROmorphone 0.5 MG/0.5 ML SYRINGE IVP ONE ×3 (12:22→13:02)
[2022-02-18] MEDS ORDERED: ROPIVACAINE 0.2%-NS ON-Q PUMP 2 MG/ML EACH MISCELLANE ONE (12:34)
[2022-02-18 12:53] LABS: Glucose,Whole Blood 153 mg/dL (70-110)
[2022-02-18] MEDS ORDERED: KETOROLAC 15 MG/ML 1 ML VIAL IVP ONE (13:55)
--- NOTE | 2022-02-18 14:06 | XR ---
EXAMINATION TYPE: XR knee limited LT DATE OF EXAM: 02/18/2022 CLINICAL HISTORY: Postoperative evaluation Two views of the left knee are submitted. Identified are changes of total knee arthroplasty with fem oral and tibial components appearing well seated. Postsurgical soft tissue changes are noted. Align ment is anatomic.
[2022-02-18 14:49] VITALS: BP 132/80
[2022-02-18 14:51] VITALS: PULSE 87; RESP 17
[2022-02-18] MEDS: ceFAZolin 3 GM in SODIUM CHLORIDE 0.9% 100 ML IVPB ONE ×2 (15:35→16:19)
== END 2022-02-18 16:30 | disposition home health service (06) ==
LOC: OR 08:05
PROVIDERS: ATTEND Orthopaedic Surgery
DX: M17.12 Unilateral primary osteoarthritis, left knee (principal); G89.18 Other acute postprocedural pain; I10 Essential (primary) hypertension; E11.9 Type 2 diabetes mellitus without complications; Z79.84 Long term (current) use of oral hypoglycemic drugs
CPT/HCPCS: 97110; 97161; 64999; 64448; 76942; 88300; 73560; 27447; C1776; C1713 ×2; J2250; J1100 ×2; J2710; J0690 ×2; J2405; J3010; J2795 ×2; J1885; J0330; J2704; J1170; J2001

== ENCOUNTER → 2023-08-20 | Outpatient (CLI) | payer BC ==
--- NOTE | 2023-08-20 11:34 | CA ---
Exercise Stress Test Report Name: Fabricio Soto Exam Date: 08/20/2023 10:22 Exam Location: [facility] Stress Ht (in): 72 Wt (lb): 275 BSA: 2.44 Ordering Phys: Jefferson Lopez DO Referring Phys: LOPEZ Technologist: Jefferson Stveens Age: 58 Gender: M : 1965 Procedure CPT: Indications: Z82.49 FAMILY HX OF ISCHEM HEART DIS E785 ICD-10 Codes: Patient History: Family history of heart disease and diabetes Medications: Meds past 24 hrs: Pretest Chest Pain: STRESS TEST Anatoliy Protocol Exercise Duration (min:sec): 09:[address] Depressions (mm): Angina Score: Pelaez Score: Resting HR (bpm): 73 Peak HR (bpm): 160 Resting BP (mmHg): 130 / 82 Peak BP (mmHg): 208 / 89 MPHR: 164 Target HR: 139 % MPHR: 98 METS: 10.3 Total Dose: Peak Dose: Atropine: Double Product: 72669 BP Response: Stress Termination: Reached target heart rate Stress Symptoms: No chest pain or symptoms Stress Summary: ECG ANALYSIS Resting ECG: Stress ECG: CONCLUSIONS Exercise stress test shows excellent exercise capacity of 9 minutes 10 minutes of work load achieved Peak heart rate 160 beats a minute Hypertensive response to exercise Peak blood Pressure 208/89 mmHg No ECG evidence for ischemia No arrhythmias Dr. Jamar Barrientos MD (Electronically Signed) Final Date: 20 August 2023 11:34
--- NOTE | 2023-08-20 11:41 | CA ---
Transthoracic Echo Report Name: Fabricio Soto Age: 58 Gender: M : 1965 Exam Date: 08/20/2023 09:43 Exam Location: [place] Echo Ht (in): 72 Wt (lb): 275 Ordering Physician: Jefferson Lopez DO Attending/Referring Phys: Manager Planning Radha Slaughter [facility] Procedure CPT: Indications: Z82.49 FAMILY HX OF ISCHEM HEART DIS E785 Cardiac Hx: Technical Quality: Fair Contrast 1: Total Dose (mL): Contrast 2: Total Dose (mL): MEASUREMENTS (Male / Female) Normal Values 2D ECHO LV Diastolic Diameter PLAX 4.6 cm 4.2 - 5.9 / 3.9 - 5.3 cm LV Systolic Diameter PLAX 3.4 cm IVS Diastolic Thickness 1.1 cm 0.6 - 1.0 / 0.6 - 0.9 cm LVPW Diastolic Thickness 1.1 cm 0.6 - 1.0 / 0.6 - 0.9 cm LV Relative Wall Thickness 0.5 LVOT Diameter 2.0 cm Ascending Aorta Diameter 3.2 cm M-MODE Aortic Root Diameter MM 2.9 cm LA Systolic Diameter MM 4.8 cm LA Ao Ratio MM 1.7 AV Cusp Separation MM 2.3 cm DOPPLER AV Peak Velocity 161.3 cm/s AV Peak Gradient 10.4 mmHg AV Mean Velocity 110.5 cm/s AV Mean Gradient 5.4 mmHg AV Velocity Time Integral 31.6 cm LVOT Peak Velocity 121.4 cm/s LVOT Peak Gradient 5.9 mmHg LVOT Velocity Time Integral 24.0 cm LVOT Stroke Volume 74.4 cm??? LVOT Stroke Volume Index 30.5 ml/m??? LVOT Cardiac Index 2146.4 cm???/min???m??? AV Area Cont Eq vti 2.4 cm??? AV Area Cont Eq pk 2.3 cm??? Mitral E Point Velocity 49.8 cm/s Mitral A Point Velocity 77.4 cm/s Mitral E to A Ratio 0.6 MV Deceleration Time 231.2 ms LV E' Lateral Velocity 10.5 cm/s Mitral E to LV E' Lateral Ratio 4.7 LV E' Septal Velocity 7.5 cm/s Mitral E to LV E' Septal Ratio 6.6 TR Peak Velocity 208.1 cm/s TR Peak Gradient 17.3 mmHg Right Atrial Pressure 3.0 mmHg Pulmonary Artery Systolic Pressu 20.3 mmHg Right Ventricular Systolic Press 20.3 mmHg FINDINGS Left Ventricle Mildly increased left ventricular wall thickness. Left ventricular cavity size normal. Low normal left ventricular systolic function. Left ventricular ejection fraction is estimated at 50-55%. Mid-basal inferoseptum appears hypokinetic. Right Ventricle Mild right ventricular dilatation. Right Atrium Normal right atrial size. Left Atrium Normal left atrial size. Mitral Valve Structurally normal mitral valve. Mild mitral regurgitation. Aortic Valve Trileaflet aortic valve. Trace aortic regurgitation. Tricuspid Valve Structurally normal tricuspid valve. Trace tricuspid regurgitation. Pulmonic Valve Pulmonic valve not well visualized. Pericardium No pericardial effusion. Aorta Normal size aortic root and proximal ascending aorta. CONCLUSIONS Preserved LV systolic function Inferior basal and inferior septal hypokinesis Previewed by: Dr. Jamar Barrientos MD (Electronically Signed) Final Date: 20 August 2023 11:40
== END | disposition home or self-care (01) ==
LOC: RADNMMAIN 09:30
PROVIDERS: ATTEND Family Medicine
DX: I51.89 Other ill-defined heart diseases (principal); E78.5 Hyperlipidemia, unspecified; Z82.49 Family history of ischemic heart disease and other diseases of the circulatory system
CPT/HCPCS: 93017; 93306

== ENCOUNTER → 2024-08-30 | Outpatient (CLI) | payer BC ==
--- NOTE | 2024-08-30 15:28 | XR ---
EXAMINATION TYPE: XR KUB DATE OF EXAM: 08/30/2024 2:51 PM COMPARISON: None. CLINICAL INDICATION: Male, 59 years old with history of N20.0 KIDNEY STONES, right flank pain for 2 w eeks FINDINGS: Scattered [id number] stool. Nonobstructive bowel gas pattern. There is a tiny round c alcification measuring 3 mm in the lower right side of the pelvis. Otherwise, no suspicious calcifica tions are seen. IMPRESSION: Tiny 3 mm calcification lower right side of the pelvis suspected tiny pelvic phlebolith r ather than distal ureteral stone. Clinically correlate. Mild to moderate stool burden. [facility], Workstation: [id number] [employer] [id number], 08/30/2024 3:26 PM
== END | disposition home or self-care (01) ==
LOC: RADXRMAIN 14:41
PROVIDERS: ATTEND Family Medicine
DX: N20.0 Calculus of kidney (principal)
CPT/HCPCS: 74018